=== PATIENT | female | born 1955 | race Caucasian/White ===

== ENCOUNTER 2018-05-08 09:14 | Emergency (ER) | payer MEDICARE, BC ==
[2018-05-08] MEDS ORDERED: LORAZEPAM 0.5 MG TAB PO ONE (09:53)
[2018-05-08] MEDS ORDERED: LORAZEPAM 0.5 MG TAB ONE (09:56)
[2018-05-08 10:13] VITALS: TEMP 99.2
[2018-05-08 11:12] VITALS: BP 116/76; PULSE 81; RESP 14; O2SAT 97
== END 2018-05-08 11:08 | disposition home or self-care (01) | DRG 310 ==
LOC: ED 09:14
DX: R00.2 Palpitations (principal)
CPT/HCPCS: 71045; 84484; 93005; 99283; 99284; A9270-GY

== ENCOUNTER 2018-07-16 18:46 | Emergency (ER) | payer MEDICARE, BC ==
[2018-07-16 18:56] VITALS: TEMP 98.6
[2018-07-16 19:38] LABS: BASOPHILS % (AUTO) 1 % (0-3); EOSINOPHILS % (AUTO) 0 % (0-9); HEMATOCRIT 40 % (35-47); HEMOGLOBIN 13.4 gm/dl (12.0-15.5); LYMPHOCYTES % (AUTO) 21.8 % (10-50); MEAN CORPUSCULAR HEMOGLOBIN 29.5 pg (27.0-32.0); MEAN CORPUSCULAR HGB CONC 33.6 gm/dl (32.0-36.0); MEAN CORPUSCULAR VOLUME 88 fL (81-99); MONOCYTES % (AUTO) 6.8 % (0-12); NEUTROPHILS % (AUTO) 70.6 % (37-80)
[2018-07-16 19:57] LABS: BLOOD UREA NITROGEN 11 mg/dl (7-18); CALCIUM 9.1 mg/dl (8.5-10.1); CARBON DIOXIDE 29.7 mEq/L (21-32); CHLORIDE 105 mMol/L (98-107); CREATININE 0.69 mg/dl (0.60-1.00); GLUCOSE 137 mg/dl (74-106); POTASSIUM 3.5 mMol/L (3.5-5.1); SODIUM 143 mMol/L (136-145); TROP I < 0.017 ng/ml (0.000-0.056)
[2018-07-16 20:38] VITALS: BP 152/92; PULSE 82; RESP 16; O2SAT 99
== END 2018-07-16 20:30 | disposition home or self-care (01) | DRG 310 ==
LOC: ED 18:46
DX: R00.0 Tachycardia, unspecified (principal); F41.9 Anxiety disorder, unspecified
CPT/HCPCS: 36415; 80048; 84484; 85025; 93005; 99283

== ENCOUNTER 2018-08-22 10:24 | Day surgery (SDC) | payer MEDICARE, BC ==
[2018-08-22] MEDS ORDERED: PROPOFOL 500 MG/50 ML EMU IV ONE (10:26)
[2018-08-22] MEDS ORDERED: LIDOCAINE HCL 1% MPF 30 SOL ONE (10:26)
[2018-08-22 12:05] VITALS: BP 126/83; PULSE 82; RESP 12; TEMP 98.4; O2SAT 98
== END 2018-08-22 12:31 | disposition home or self-care (01) | DRG 392 ==
LOC: SURG 10:24
PROVIDERS: ATTEND Surgery
DX: R19.5 Other fecal abnormalities (principal); D12.2 Benign neoplasm of ascending colon
CPT/HCPCS: J2001; J2704